=== PATIENT | male | born 1955 | race African-American/Black ===

== ENCOUNTER 2022-01-14 20:46 | Inpatient (IN) | payer OTHER ==
[~2022-01-14] VITALS: Ht 182.9 cm; Wt 85.7 kg
[2022-01-14 22:57] LABS: BASOPHILS % 0.6 % (0.0-2.0); EOSINOPHILS % 1.1 % (0.0-5.0); HEMATOCRIT. 29.3 % (42.0-52.0); HEMOGLOBIN. 9.6 g/dL (14.0-18.0); LYMPHOCYTES % 14.7 % (20.0-50.0); MEAN CORPUSCULAR HEMOGLOBIN 28.4 pg (28.0-32.0); MEAN CORPUSCULAR VOLUME 86.1 fL (80.0-94.0); MEAN PLATELET VOLUME 7.1 fl (7.4-10.4); MONOCYTES % 11.5 % (2.0-8.0); NEUTROPHILS % 72.1 % (40.0-76.0); PLATELET 549 x1000/uL (130-400)
[2022-01-14 23:04] LABS: CHLORIDE 102 mEq/L (98-107)
[2022-01-14 23:15] LABS: ETHANOL BLOOD < 10 mg/dL
[2022-01-14] MEDS ORDERED: MORPHINE SULFATE 4 MG/ML CPJ (NOT FOR IM USE) IV ONE (23:15)
[2022-01-15] MEDS ORDERED: ACETAMINOPHEN 325MG TABLET PO PRN
[2022-01-15] MEDS ORDERED: MAGNESIUM/ALUMINUM HYDROXIDE/SIMETHICONE 30ML UDC PO PRN
[2022-01-15] MEDS ORDERED: CLONIDINE 0.1MG TABLET PO PRN
[2022-01-15] MEDS ORDERED: ONDANSETRON HCL 4MG/2ML INJ IV PRN
[2022-01-15] MEDS ORDERED: IPRATROPIUM/ALBUTEROL 0.5-3(2.5)MG/3ML NEB HHN PRN
[2022-01-15] MEDS ORDERED: DOCUSATE SODIUM 100MG CAPSULE PO PRN
[2022-01-15] MEDS: FAMOTIDINE 20MG TABLET PO SCH ×2 (09:00→21:00)
[2022-01-15] MEDS: ENOXAPARIN 40MG/0.4ML SYR SUBCUT SCH (09:00)
[2022-01-15 15:34] LABS: BASOPHILS % 0.6 % (0.0-2.0); EOSINOPHILS % 0.3 % (0.0-5.0); HEMATOCRIT. 30.6 % (42.0-52.0); LYMPHOCYTES % 8.5 % (20.0-50.0); MEAN CORPUSCULAR HEMOGLOBIN 28.4 pg (28.0-32.0); MEAN CORPUSCULAR VOLUME 86.9 fL (80.0-94.0); MEAN PLATELET VOLUME 7.6 fl (7.4-10.4); MONOCYTES % 8.5 % (2.0-8.0); NEUTROPHILS % 82.1 % (40.0-76.0); PLATELET 563 x1000/uL (130-400); RED BLOOD CELL COUNT 3.52 mill/uL (4.7-6.1); RED CELL DISTRIBUTION WIDTH 15.6 % (11.6-14.6)
[2022-01-15 15:43] LABS: CHLORIDE 98 mEq/L (98-107)
[2022-01-15 16:00] LABS: HDL CHOLESTEROL 47 mg/dL (40-59); LDL CHOLESTEROL 67 mg/dL (5-100); PHOSPHORUS 3.3 mg/dL (2.5-4.9); T4 FREE 1.36 ng/dL (0.76-1.46); TOTAL IRON BINDING CAPACITY 284 ug/dL (250-450)
[2022-01-15 16:18] LABS: VITAMIN B12 SERUM 673 pg/mL (211-911)
[2022-01-16] MEDS: ENOXAPARIN 40MG/0.4ML SYR SUBCUT SCH (09:00)
[2022-01-16] MEDS: FAMOTIDINE 20MG TABLET PO SCH ×2 (09:27→21:45)
[2022-01-16] MEDS ORDERED: NALOXONE HCL 0.4MG/ML VIAL IV PRN (13:15)
[2022-01-16 16:46] VITALS: BP 152/80
[2022-01-16 20:00] VITALS: BP 142/88
[2022-01-16] MEDS: HYDROCODONE/ACETAMINOPHEN 5/325MG TABLET PO PRN (21:45)
[2022-01-17] VITALS: BP 142/82
[2022-01-17 08:00] VITALS: BP 174/92
[2022-01-17] MEDS: FAMOTIDINE 20MG TABLET PO SCH ×2 (09:00→20:43)
[2022-01-17] MEDS: ENOXAPARIN 40MG/0.4ML SYR SUBCUT SCH (09:00)
[2022-01-17 12:00] VITALS: BP 169/88
[2022-01-17 16:00] VITALS: BP 175/91
[2022-01-17 20:00] VITALS: BP 143/91
[2022-01-17] MEDS: HYDROCODONE/ACETAMINOPHEN 5/325MG TABLET PO PRN (20:43)
[2022-01-18] VITALS: BP 140/90
[2022-01-18 04:00] VITALS: BP 142/89
[2022-01-18] MEDS: FAMOTIDINE 20MG TABLET PO SCH ×2 (08:36→21:48)
[2022-01-18] MEDS: RISPERIDONE 0.5MG TABLET PO SCH ×2 (08:36→17:00)
[2022-01-18] MEDS: ENOXAPARIN 40MG/0.4ML SYR SUBCUT SCH (08:42)
[2022-01-18 20:00] VITALS: BP 122/62
[2022-01-19] MEDS: RISPERIDONE 0.5MG TABLET PO SCH ×2 (08:49→17:00)
[2022-01-19] MEDS: FAMOTIDINE 20MG TABLET PO SCH ×2 (08:49→21:00)
[2022-01-19] MEDS: ENOXAPARIN 40MG/0.4ML SYR SUBCUT SCH (08:54)
[2022-01-19 11:30] LABS: BASOPHILS % 0.2 % (0.0-2.0); EOSINOPHILS % 0.3 % (0.0-5.0); HEMOGLOBIN. 10.3 g/dL (14.0-18.0); LYMPHOCYTES % 11.1 % (20.0-50.0); MEAN CORPUSCULAR HEMOGLOBIN 28.4 pg (28.0-32.0); MEAN CORPUSCULAR VOLUME 85.4 fL (80.0-94.0); MEAN PLATELET VOLUME 7.8 fl (7.4-10.4); MONOCYTES % 5.9 % (2.0-8.0); NEUTROPHILS % 82.5 % (40.0-76.0); PLATELET 472 x1000/uL (130-400); RED BLOOD CELL COUNT 3.63 mill/uL (4.7-6.1); RED CELL DISTRIBUTION WIDTH 15.8 % (11.6-14.6)
[2022-01-19 12:00] VITALS: BP 129/75
[2022-01-19 12:32] LABS: CHLORIDE 86 mEq/L (98-107)
[2022-01-19 12:47] LABS: PHOSPHORUS 2.9 mg/dL (2.5-4.9)
[2022-01-19 16:00] VITALS: BP 147/75
[2022-01-20] VITALS: BP 134/68
[2022-01-20] MEDS: RISPERIDONE 0.5MG TABLET PO SCH ×2 (09:00→10:48)
[2022-01-20] MEDS: FAMOTIDINE 20MG TABLET PO SCH ×2 (10:48→21:00)
[2022-01-20] MEDS: ENOXAPARIN 40MG/0.4ML SYR SUBCUT SCH (10:49)
[2022-01-20] MEDS: ACETAMINOPHEN 325MG TABLET PO PRN (10:51)
[2022-01-20 12:00] VITALS: BP 142/88
[2022-01-20 16:00] VITALS: BP 132/75
[2022-01-20 20:00] VITALS: BP 129/70
[2022-01-21] VITALS: BP 131/80
[2022-01-21 04:00] VITALS: BP 120/77
[2022-01-21] MEDS: RISPERIDONE 0.5MG TABLET PO SCH ×3 (09:00→22:41)
[2022-01-21] MEDS: FAMOTIDINE 20MG TABLET PO SCH ×2 (09:00→21:00)
[2022-01-21] MEDS: ENOXAPARIN 40MG/0.4ML SYR SUBCUT SCH (09:00)
[2022-01-21 16:00] VITALS: BP 133/76
[2022-01-21 20:00] VITALS: BP 140/70
[2022-01-22] VITALS: BP 143/76
[2022-01-22 04:00] VITALS: BP 159/73
[2022-01-22] MEDS ORDERED: LORAZEPAM 2MG/ML CPJ IM NR (06:15)
[2022-01-22 08:00] VITALS: BP 137/84
[2022-01-22] MEDS: FAMOTIDINE 20MG TABLET PO SCH ×2 (08:45→21:00)
[2022-01-22] MEDS: ENOXAPARIN 40MG/0.4ML SYR SUBCUT SCH (08:46)
[2022-01-22 12:00] VITALS: BP 132/77
[2022-01-22 16:00] VITALS: BP 129/75
[2022-01-22] MEDS: RISPERIDONE 0.5MG TABLET PO SCH (17:27)
[2022-01-22 20:00] VITALS: BP 144/67
[2022-01-23] VITALS: BP 146/72
[2022-01-23 04:00] VITALS: BP 140/72
[2022-01-23] MEDS: ACETAMINOPHEN 325MG TABLET PO PRN ×3 (05:16→06:20)
[2022-01-23 08:00] VITALS: BP 138/73
[2022-01-23] MEDS: ENOXAPARIN 40MG/0.4ML SYR SUBCUT SCH (09:47)
[2022-01-23] MEDS: FAMOTIDINE 20MG TABLET PO SCH ×2 (09:47→20:37)
[2022-01-23] MEDS: RISPERIDONE 0.5MG TABLET PO SCH ×2 (09:47→18:49)
[2022-01-23 12:00] VITALS: BP 133/64
[2022-01-23 16:00] VITALS: BP 147/51
[2022-01-23 20:00] VITALS: BP 102/64
[2022-01-24] VITALS (7 sets, daily range): BP systolic 133–165; BP diastolic 73–107
[2022-01-24] MEDS: GUAIFENESIN 200MG/10ML SUGAR FREE UDC PO PRN ×2 (05:00→23:42)
[2022-01-24] MEDS: FAMOTIDINE 20MG TABLET PO SCH ×2 (08:46→20:59)
[2022-01-24] MEDS: ENOXAPARIN 40MG/0.4ML SYR SUBCUT SCH ×2 (08:46→08:49)
[2022-01-24] MEDS: RISPERIDONE 0.5MG TABLET PO SCH ×2 (08:46→17:40)
[2022-01-24] MEDS: ACETAMINOPHEN 325MG TABLET PO PRN (21:02)
[2022-01-25 04:11] VITALS: BP 141/65
[2022-01-25 08:00] VITALS: BP 135/75
[2022-01-25] MEDS: FAMOTIDINE 20MG TABLET PO SCH ×2 (08:29→22:14)
[2022-01-25] MEDS: RISPERIDONE 0.5MG TABLET PO SCH (08:29)
[2022-01-25] MEDS: ENOXAPARIN 40MG/0.4ML SYR SUBCUT SCH (08:29)
[2022-01-25 12:00] VITALS: BP 129/70
[2022-01-25 16:00] VITALS: BP 149/79
[2022-01-25] MEDS: RISPERIDONE 1MG TABLET PO SCH (16:38)
[2022-01-25 20:00] VITALS: BP 136/74
[2022-01-26] VITALS: BP 155/75
[2022-01-26 04:00] VITALS: BP 145/70
[2022-01-26 08:00] VITALS: BP 158/91
[2022-01-26] MEDS: ENOXAPARIN 40MG/0.4ML SYR SUBCUT SCH ×2 (09:00→09:03)
[2022-01-26] MEDS: FAMOTIDINE 20MG TABLET PO SCH ×2 (09:03→22:19)
[2022-01-26] MEDS: RISPERIDONE 1MG TABLET PO SCH ×2 (09:03→17:02)
[2022-01-26 10:10] LABS: BASOPHILS % 0.2 % (0.0-2.0); EOSINOPHILS % 0.7 % (0.0-5.0); HEMATOCRIT. 26.5 % (42.0-52.0); HEMOGLOBIN. 8.9 g/dL (14.0-18.0); MEAN CORPUSCULAR HEMOGLOBIN 28.9 pg (28.0-32.0); MEAN CORPUSCULAR VOLUME 86.3 fL (80.0-94.0); MEAN PLATELET VOLUME 7.7 fl (7.4-10.4); NEUTROPHILS % 77.1 % (40.0-76.0); PLATELET 571 x1000/uL (130-400); RED BLOOD CELL COUNT 3.08 mill/uL (4.7-6.1); RED CELL DISTRIBUTION WIDTH 16.3 % (11.6-14.6)
[2022-01-26 11:08] LABS: CHLORIDE 93 mEq/L (98-107)
[2022-01-26 12:00] VITALS: BP 161/78
[2022-01-26 16:00] VITALS: BP 138/87
[2022-01-26 20:00] VITALS: BP 145/79
[2022-01-27] VITALS: BP 159/77
[2022-01-27 04:00] VITALS: BP 148/80
[2022-01-27 08:00] VITALS: BP 150/77
[2022-01-27] MEDS: ENOXAPARIN 40MG/0.4ML SYR SUBCUT SCH (09:00)
[2022-01-27] MEDS: RISPERIDONE 1MG TABLET PO SCH ×2 (09:12→16:40)
[2022-01-27] MEDS: FAMOTIDINE 20MG TABLET PO SCH ×2 (09:12→20:03)
[2022-01-27] MEDS: FLUOXETINE HCL 10 MG CAPSULE PO SCH (14:08)
[2022-01-27 16:00] VITALS: BP 146/85
[2022-01-27 22:00] VITALS: BP 144/63
[2022-01-28 08:00] VITALS: BP 149/71
[2022-01-28] MEDS: FLUOXETINE HCL 10 MG CAPSULE PO SCH (08:51)
[2022-01-28] MEDS: ENOXAPARIN 40MG/0.4ML SYR SUBCUT SCH (08:51)
[2022-01-28] MEDS: RISPERIDONE 1MG TABLET PO SCH ×2 (08:52→16:27)
[2022-01-28] MEDS: FAMOTIDINE 20MG TABLET PO SCH ×2 (08:52→20:22)
[2022-01-28 12:00] VITALS: BP 150/77
[2022-01-28 16:00] VITALS: BP 158/87
[2022-01-28 20:00] VITALS: BP 153/80
[2022-01-28] MEDS: GUAIFENESIN 200MG/10ML SUGAR FREE UDC PO PRN (20:22)
[2022-01-28 23:31] VITALS: BP 160/81
[2022-01-29] MEDS: ACETAMINOPHEN 325MG TABLET PO PRN (01:42)
[2022-01-29 03:34] VITALS: BP 156/78
[2022-01-29 06:30] LABS: HEMATOCRIT. 26.5 % (42.0-52.0); MEAN CORPUSCULAR HEMOGLOBIN 28.8 pg (28.0-32.0); MEAN CORPUSCULAR VOLUME 85.1 fL (80.0-94.0); MEAN PLATELET VOLUME 7.3 fl (7.4-10.4); PLATELET 587 x1000/uL (130-400); RED BLOOD CELL COUNT 3.12 mill/uL (4.7-6.1); RED CELL DISTRIBUTION WIDTH 16.4 % (11.6-14.6)
[2022-01-29 08:00] VITALS: BP 154/84
[2022-01-29] MEDS: RISPERIDONE 1MG TABLET PO SCH ×2 (08:10→17:13)
[2022-01-29] MEDS: FLUOXETINE HCL 10 MG CAPSULE PO SCH (08:10)
[2022-01-29] MEDS: FAMOTIDINE 20MG TABLET PO SCH ×2 (08:10→20:02)
[2022-01-29] MEDS: ENOXAPARIN 40MG/0.4ML SYR SUBCUT SCH (08:10)
[2022-01-29 08:15] LABS: CHLORIDE 96 mEq/L (98-107)
[2022-01-29 08:19] LABS: PHOSPHORUS 4.6 mg/dL (2.5-4.9); TOTAL IRON BINDING CAPACITY 373 ug/dL (250-450)
[2022-01-29] MEDS ORDERED: RISP1 PO (11:53)
[2022-01-29] MEDS ORDERED: FLUOX10 PO (11:53)
[2022-01-29 12:00] VITALS: BP 153/73
[2022-01-29 14:34] LABS: PLATELET ESTIMATE INCREASED
[2022-01-29 16:00] VITALS: BP 150/75
[2022-01-29 20:00] VITALS: BP 147/89
[2022-01-29 21:12] LABS: BASOPHILS % 0.5 % (0.0-2.0); EOSINOPHILS % 1.2 % (0.0-5.0); HEMATOCRIT. 28.1 % (42.0-52.0); HEMOGLOBIN. 9.4 g/dL (14.0-18.0); LYMPHOCYTES % 13.3 % (20.0-50.0); MEAN CORPUSCULAR HEMOGLOBIN 28.8 pg (28.0-32.0); MEAN CORPUSCULAR VOLUME 85.9 fL (80.0-94.0); MONOCYTES % 13.8 % (2.0-8.0); NEUTROPHILS % 71.2 % (40.0-76.0); PLATELET 628 x1000/uL (130-400); RED BLOOD CELL COUNT 3.27 mill/uL (4.7-6.1)
[2022-01-29 21:15] LABS: CHLORIDE 94 mEq/L (98-107)
[2022-01-30] VITALS: BP 132/82
[2022-01-30 04:00] VITALS: BP 112/84
[2022-01-30 08:00] VITALS: BP 147/77
[2022-01-30] MEDS: RISPERIDONE 1MG TABLET PO SCH ×2 (08:35→17:10)
[2022-01-30] MEDS: FLUOXETINE HCL 10 MG CAPSULE PO SCH (08:35)
[2022-01-30] MEDS: FAMOTIDINE 20MG TABLET PO SCH ×2 (08:35→20:47)
[2022-01-30] MEDS: ENOXAPARIN 40MG/0.4ML SYR SUBCUT SCH (08:35)
[2022-01-30 12:00] VITALS: BP 145/74
[2022-01-30 15:46] LABS: *AMPHETAMINES SCREEN URINE NEGATIVE (NEGATIVE); *BARBITURATES SCREEN URINE NEGATIVE (NEGATIVE); *BENZODIAZEPINES SCREEN URINE NEGATIVE (NEGATIVE); *COCAINE SCREEN URINE NEGATIVE (NEGATIVE); CANNABINOID URINE SCREEN NEGATIVE (NEGATIVE); METHADONE URINE SCREEN NEGATIVE (NEGATIVE); OPIATES URINE SCREEN NEGATIVE (NEGATIVE); PHENCYCLIDINE URINE SCREEN NEGATIVE (NEGATIVE)
[2022-01-30 16:00] VITALS: BP 140/74
[2022-01-30 19:31] LABS: CLARITY URINE CLEAR (CLEAR); COLOR URINE YELLOW (YELLOW); KETONES URINE NEGATIVE (NEGATIVE); LEUKOCYTE ESTERASE URINE NEGATIVE (NEGATIVE); NITRITE URINE NEGATIVE (NEGATIVE); OCCULT BLOOD URINE NEGATIVE (NEGATIVE); PH URINE 8.5 (4.5-8.0); PROTEIN URINE NEGATIVE (NEGATIVE); SPECIFIC GRAVITY URINE 1.014 (1.005-1.030); UROBILINOGEN URINE 0.2 E.U./dL (0.2-1.0)
[2022-01-30 20:00] VITALS: BP 144/78
[2022-01-31] VITALS: BP 142/82
[2022-01-31 08:00] VITALS: BP 155/84
[2022-01-31] MEDS: RISPERIDONE 1MG TABLET PO SCH (10:17)
[2022-01-31] MEDS: FAMOTIDINE 20MG TABLET PO SCH (10:17)
[2022-01-31] MEDS: FLUOXETINE HCL 10 MG CAPSULE PO SCH (10:17)
[2022-01-31] MEDS: ENOXAPARIN 40MG/0.4ML SYR SUBCUT SCH (10:18)
[2022-01-31 11:43] VITALS: BP 155/84
[2022-01-31 12:00] VITALS: BP 154/80
[2022-01-31] MEDS ORDERED: FERROUS SULFATE 325MG TABLET PO SCH (12:00)
[2022-01-31] MEDS ORDERED: FERR-63 PO (12:09)
== END 2022-01-31 13:54 | DRG 52 ==
LOC: ER 20:46 → EDBD 20:46 → MICUSO 23:29 → SUPCPDRO 23:31 → 6EST 01-16 12:58 → UNDODISIN 01-18 18:55 → 4WST 01-21 00:45
PROVIDERS: ADMIT Internal Medicine; ATTEND Internal Medicine
DX: G93.40 Encephalopathy, unspecified (principal); E44.0 Moderate protein-calorie malnutrition; M79.661 Pain in right lower leg; M79.662 Pain in left lower leg; D72.829 Elevated white blood cell count, unspecified; H57.02 Anisocoria; D75.839 Thrombocytosis, unspecified; F29 Unspecified psychosis not due to a substance or known physiological condition; Z20.822 Contact with and (suspected) exposure to COVID-19; R26.2 Difficulty in walking, not elsewhere classified; R79.89 Other specified abnormal findings of blood chemistry; Z68.25 Body mass index [BMI] 25.0-25.9, adult; Z59.01 Sheltered homelessness; D50.9 Iron deficiency anemia, unspecified
CPT/HCPCS: 36415; 73590; 73610; 80048; 80053; 80061; 80305; 80320; 81003; 82140; 82607; 82728; 82746; 83540; 83550; 83735; 83880; 84100; 84145; 84439; 84443; 84484; 85025; 87426; 97116; 97162; 97165; 97530; 97535; 99283; J1650; J2060; G0480